=== PATIENT | male | born 1995 | race Caucasian/White ===

== ENCOUNTER 2025-04-28 07:05 | Day surgery (SDC) | payer OTHER ==
[2025-04-25 16:15] VITALS: BMI 35.6
[2025-04-28] MEDS ORDERED: PROMETHAZINE HCL 25 MG/1 ML VIAL IVPB PRN (10:17)
[2025-04-28] MEDS ORDERED: oxyCODONE HCL 5 MG TABLET PO PRN (10:17)
[2025-04-28] MEDS ORDERED: PROPOFOL 20 ML ONE (10:22)
[2025-04-28] MEDS ORDERED: MIDAZOLAM HCL 2 MG/2 ML SINGLE DOSE VIAL ONE (10:22)
[2025-04-28] MEDS ORDERED: ROCURONIUM BROMIDE 50 MG/5 ML SYRINGE ONE (10:23)
[2025-04-28] MEDS: ceFAZolin 2 GRAM PREMIX BAG IVPB ONE (11:12)
[2025-04-28] MEDS: OXYMETAZOLINE 0.05% NASAL SOLUTION 15 ML BOTTLE NS ONE (11:18)
[2025-04-28] MEDS: LIDOCAINE 1%/EPI 1:100000 (20 ML MULTI DOSE VIAL) IJ ONE ×2 (11:18)
[2025-04-28] MEDS ORDERED: ACETAMINOPHEN INJECTION 100 ML ONE (11:23)
[2025-04-28] MEDS: BACITRACIN ZINC 15 GM TUBE TOPICAL OINTMENT TP ONE (12:22)
[2025-04-28 14:41] VITALS: RESP 16
[2025-04-28 16:16] VITALS: BP 150/68; PULSE 80; TEMP 97.6
== END 2025-04-28 16:20 | disposition home or self-care (01) ==
LOC: JASU-SURG 07:05
PROVIDERS: ATTEND Otolaryngology
PROC: 09BM8ZZ Excision of Nasal Septum, Via Natural or Artificial Opening Endoscopic (ICD-10-PCS; principal; 2025-04-28 11:30)
PROC: 09BL8ZZ Excision of Nasal Turbinate, Via Natural or Artificial Opening Endoscopic (ICD-10-PCS; 2025-04-28 11:30)
PROC: 0CTQ0ZZ Resection of Adenoids, Open Approach (ICD-10-PCS; 2025-04-28 11:30)
DX: J34.2 Deviated nasal septum (principal); J34.3 Hypertrophy of nasal turbinates; J35.2 Hypertrophy of adenoids
CPT/HCPCS: 88304-TC; 88311-TC; 94760